=== PATIENT | female | born 1965 | race American Indian/Alaskan Native ===

== ENCOUNTER 2017-06-24 13:43 | Outpatient (CLI) | payer MEDICARE ==
--- NOTE | 2017-06-25 09:47 | XRay Report ---
XRAY BILATERAL KNEE THREE VIEWS EACH: 06/24/17 13:43:00 CLINICAL: Knee pain FINDINGS: Right: Mild osteopenia. The joint spaces are normal. No fracture or dislocation. No joint effusion. Normal soft tissues. Left: Mild osteopenia. The joint spaces are normal. No fracture or dislocation. No joint effusion.Normal soft tissues. IMPRESSION: Mild osteopenia but otherwise normal knees.
== END 2017-06-24 13:44 | disposition home or self-care (01) ==
LOC: SPVIMAG 13:43
PROVIDERS: ATTEND Orthopaedic Surgery
DX: M85.861 Other specified disorders of bone density and structure, right lower leg (principal); M85.862 Other specified disorders of bone density and structure, left lower leg